=== PATIENT | male | born 1980 | race Caucasian/White ===

== ENCOUNTER 2023-08-29 12:45 | Emergency (ER) | payer OTHER ==
[~2023-08-29] VITALS: Ht 175.3 cm; Wt 93.1 kg
[2023-08-29] MEDS: TETANUS-DIPTH-ACEL PERTUSSIS 0.5ML SYR Tdap IM ONE (13:33)
[2023-08-29] MEDS: ONDANSETRON ODT 4 MG TAB PO ONE (13:37)
[2023-08-29] MEDS ORDERED: NAPR-746 PO (13:38)
[2023-08-29] MEDS ORDERED: AMOX500T86 PO (13:38)
[2023-08-29 13:57] VITALS: BP 119/87; PULSE 90; RESP 17; TEMP 97.7; O2SAT 97
== END 2023-08-29 14:00 | disposition home or self-care (01) ==
LOC: ER 12:45
DX: S71.132A Puncture wound without foreign body, left thigh, initial encounter (principal); S70.12XA Contusion of left thigh, initial encounter; F41.9 Anxiety disorder, unspecified; Z79.899 Other long term (current) drug therapy; W54.0XXA Bitten by dog, initial encounter; Y93.89 Activity, other specified; Y92.89 Other specified places as the place of occurrence of the external cause; Y99.8 Other external cause status
CPT/HCPCS: 90471; 90715; 99283; Q0162